=== PATIENT | male | born 1980 ===

== ENCOUNTER → 2016-06-30 | Outpatient (REF) ==
--- NOTE | 2016-06-30 12:26 | REP ---
Clinical: Pain and disability. Technique: AP, lateral, and coned-down views of the lumbosacral spine. Findings: Alignment and lordosis maintained. There is no evidence for acute fracture or dislocation. L3 limbus vertebra noted. Mild/early moderate degenerative disc osteophyte complex at the L1-2, L2-3 levels include anterior spurring endplate sclerosis and disc space narrowing. The L3-4, L4-5, and the L5-S1 levels appear relatively normal. Impression: Mild to early moderate multilevel degenerative changes. Limbus vertebra and L3. Signed by Femi Mei MD 06/30/2016 12:18 P
== END ==
LOC: M SMT 11:26
PROVIDERS: ATTEND Internal Medicine
DX: Z02.1 Encounter for pre-employment examination (principal)